=== PATIENT | female | born 1990 | race Two or more races ===

== ENCOUNTER 2019-04-03 11:17 | Emergency (ER) | payer MEDICAID ==
[~2019-04-03] VITALS: Ht 167.6 cm; Wt 86.0 kg
[2019-04-03 11:19] VITALS: BP 119/68
== END 2019-04-03 13:16 | disposition home or self-care (01) ==
LOC: ER 11:17
DX: O26.893 Other specified pregnancy related conditions, third trimester (principal); Z3A.37 37 weeks gestation of pregnancy; X50.9XXA Other and unspecified overexertion or strenuous movements or postures, initial encounter; Y93.89 Activity, other specified; Y92.89 Other specified places as the place of occurrence of the external cause; Y99.8 Other external cause status
CPT/HCPCS: 99283